=== PATIENT | male | born 1990 | race Caucasian/White ===

== ENCOUNTER 2019-11-25 10:00 | Emergency (ER) | payer MEDICAID ==
[~2019-11-25] VITALS: Ht 170.2 cm; Wt 81.1 kg
[2019-11-25 10:13] VITALS: BP 131/65
--- NOTE | 2019-11-25 10:52 | NUR ---
PT BIB P/V FOR [place] FOR 3 DAYS, LAST NOC PT REPORTS HE WAS DIZZY WHEN STANDING, RIGHT SUBSCAPULAR PAIN THAT MADE FLAHERTY WORSE WHEN MASSAGED AREA. PT DENIES N/V, VISION CHANGES.
[2019-11-25] MEDS ORDERED: KETOROLAC 30 MG/1 ML IM ONE (11:00)
[2019-11-25] MEDS ORDERED: ACETAMINOPHEN 325 MG TABLET PO ONE (11:00)
[2019-11-25] MEDS ORDERED: CYCLOBENZAPRINE 10 MG TABLET PO ONE (11:00)
[2019-11-25] MEDS ORDERED: CYCLOBENZAPRINE 10 MG TABLET ONE (11:02)
[2019-11-25] MEDS ORDERED: ACETAMINOPHEN 325 MG TABLET ONE (11:02)
[2019-11-25] MEDS ORDERED: KETOROLAC 30 MG/1 ML ONE (11:02)
== END 2019-11-25 11:47 | disposition home or self-care (01) ==
LOC: ED 10:30
DX: G44.219 Episodic tension-type headache, not intractable (principal); M62.830 Muscle spasm of back; K21.9 Gastro-esophageal reflux disease without esophagitis
CPT/HCPCS: 96372; 99283; J1885